=== PATIENT | male | born 1945 | race Caucasian/White ===

== ENCOUNTER → 2019-07-31 14:32 | Outpatient (CLI) | payer OTHER, SELFPAY ==
--- NOTE | 2019-07-31 14:36 | DI.US.S_ITS ---
PROCEDURE: US ABDOMEN LIMITED INDICATIONS: R PELVIC REGION LUMP, BRUISE, R/OHERNIA TECHNIQUE: Real-time focused scanning was performed of the inguinal region, with image documentation. COMPARISON: None. FINDINGS: The right inguinal region was evaluated and the area of subjective lump. Imaging was performed with and without Valsalva. No inguinal hernia is identified. No lymphadenopathy or other suspicious mass is identified. No fluid collection. IMPRESSION: Unremarkable ultrasound in the region of the palpable lump in the right inguinal region. No evidence of hernia. Dictated by: Jasiel Thakkar M.D. on 07/31/2019 at 15:23 Approved by: Jasiel Thakkar M.D. on 07/31/2019 at 15:24
== END ==
PROVIDERS: PCP Internal Medicine; Visit Provider Physician Assistant
DX: S30.1XXA Contusion of abdominal wall, initial encounter (principal)
CPT/HCPCS: 76705

== ENCOUNTER → 2019-07-31 14:37 | Outpatient (CLI) | payer OTHER, SELFPAY ==
[2019-07-31 15:24] LABS: Erythrocyte Sedimentation Rate 7 MM/HR (0-15)
[2019-07-31 17:03] LABS: C-Reactive Protein Quant 0.9 mg/dL (<1.0)
== END ==
PROVIDERS: PCP Internal Medicine; Visit Provider Pain Medicine Pain Medicine
DX: M47.819 Spondylosis without myelopathy or radiculopathy, site unspecified (principal)
CPT/HCPCS: 36415; 85651; 86140

== ENCOUNTER 2019-10-07 13:00 | Outpatient (RCR) | payer OTHER, SELFPAY ==
--- NOTE | 2019-08-22 15:59 | PT-OP ANOTE ---
Pt arrives for PT eval. He and state that he is going to have MBB procedure on 08/27/19 and will follow-up with referring provider on 08/28/19. Given this, PT will hold assessment until after intervention. Pt and to get any clearance orders from referring provider if needed post-procedure. Will use history information collected today for assessment when appropriate.
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
--- NOTE | 2019-09-06 16:10 | PT.OPPOC ---
Current Diagnoses Myalgia, other site (09/06/19) Visit Care Team Role Provider Type Jerome Krishna MD Primary Care Provider Physician Specialty: Internal Medicine Address: [address] [place] [address], [address] Email: [email or web address] Attending Provider Non-Staff Specialty: Anesthesiology Address: [address] [place] [address], [address], [place], [address] Email: Plan Of Care PT-OP-T Assessment and Plan Start: 08/22/19 07:20 Freq: Status: Active Protocol: Document 09/06/19 14:34 MB (Rec: 09/06/19 16:09 MB [id number]) Physical Therapy Assessment Rehab Potential Rehabilitation Potential Good Evaluation Complexity Number of Personal Factors/Comorbidities 1-2 Number of Body Systems Impaired 1-2 Clinical Presentation at Evaluation Evolving Impairments Impairments Pain,Posture,ROM,Sensation, Soft Tissue Mobility,Strength, Vestibular Goals 4 Cleat Thrower Goal (LTG) Pt will report a 50% improvement in neck pain by . 3 Fpc Goal (LTG) Pt will present with improved active cervical ROM flexion to 30 deg, extension to 25 deg and B rotation to 60 deg by . LTG Duration 9 weeks 2 Cleat Thrower Goal (LTG) Pt will perform progressive HEP with I including flexibility, strengthening and postural exercises by 11/15/19 . LTG Duration 9 weeks 1 Cleat Thrower Goal (LTG) Pt will present with an improved NDI score to reflect no more than 10% impairment by 11/15/19. LTG Duration 9 weeks Assessment Summary Assessment Pt is a 73 y/o male presenting with neck and thoracic pain. He reports his low back no longer bothers him after his MBB to lumbar spine last week. Pt presents with decreased cervical ROM, postural and myofascial changes and decreased flexibility. He will benefit from PT for flexibility, manual, postural, alignment and balance exercises. Barriers to PT include reports of mild instability LB after MBB with future injections planned and obesity. Pt is also interested in trying TENS as he liked e- stim in the past. Physical Therapy Plan Frequency and Duration Frequency of Treatment 2x/Week Duration of Treatment 9 weeks Plan of Care Start Date 09/06/19 Plan of Care End Date 11/15/19 Therapeutic Interventions Therapeutic Interventions Balance Training,Canalithic Repositioning,Coordination Training,Home Exercise Program ,Manual Therapy,Neuromuscular Re-education,Patient/Caregiver Education,Self-Care/Home Management,Soft Tissue Mobilization,Taping, Therapeutic Exercises Modalities Cold Pack/Ice Massage,Electric Stimulation,Hot Packs, Ultrasound Next Visit Focus/Plan Next Note Type Treatment Note Next Visit Plan Initiate postural, alignment and flexibility exercises Plan of Care Dates Plan of Care Start Date 09/06/19 Plan of Care End Date 11/15/19
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
== END 2019-10-07 14:00 ==
LOC: PHYS 13:00
PROVIDERS: PCP Internal Medicine; Visit Provider Pain Medicine Pain Medicine
DX: M79.18 Myalgia, other site (principal)
CPT/HCPCS: 97110; 97140; 97162

== ENCOUNTER → 2019-12-31 07:36 | Outpatient (CLI) | payer OTHER, SELFPAY ==
[2019-12-31 08:08] LABS: Add Manual Diff / Slide Review NO; Basophils Absolute Auto 100 /uL (0-100); Basophils Percent Auto 0.9 % (0-2); Eosinophils Absolute Auto 300 /uL (0-450); Hematocrit 45.9 % (41-53); Hemoglobin 15.8 g/dL (13.5-17.5); Lymphocytes Absolute Auto 2300 /uL (1100-4500); Lymphocytes Percent Auto 36.9 % (25-40); Mean Corpuscular HGB Conc 34.4 % (30-36); Mean Corpuscular Hemoglobin 31.1 PG (26-34); Mean Corpuscular Volume 90.5 fL (80-100); Monocytes Absolute Auto 400 /uL (0-900); Monocytes Percent Auto 7.3 % (3-14); Neutrophils Absolute Auto 3100 /uL (1500-7000); Neutrophils Percent Auto 49.9 % (50-75); Platelet Count 268 X10^3/uL (150-400); Red Blood Cell Count 5.07 X10^6/uL (4.5-5.9); Red Cell Distribution Width 13.7 % (11.6-14.8); White Blood Cell Count 6.1 X10^3/uL (4.5-11.0)
[2019-12-31 08:22] LABS: Aspartate Aminotransferase 21 IU/L (17-59); BUN Creatinine Ratio 25.8 (6-22); Blood Urea Nitrogen 24 mg/dL (9-20); Calcium 9.6 mg/dL (8.4-10.2); Carbon Dioxide 26 mmol/L (22-32); Chloride 103 mmol/L (98-107); Cholesterol 213 mg/dL (140-199); Estimated Glomerular Filt Rate > 60.0 mL/min (>60); Glucose 148 mg/dL (80-110); HDL Cholesterol 39 mg/dL (40-60); HEMOLYSIS < 15 (0-50); LDL Cholesterol Calculated 147 mg/dL (<100); Potassium 3.5 mmol/L (3.4-5.1); Sodium 139 mmol/L (137-145); Triglycerides 137 mg/dL (35-150)
== END ==
PROVIDERS: PCP Internal Medicine; Referring Provider Internal Medicine; Visit Provider Internal Medicine
DX: I10 Essential (primary) hypertension (principal); E78.2 Mixed hyperlipidemia; N40.0 Benign prostatic hyperplasia without lower urinary tract symptoms
CPT/HCPCS: 36415; 80048; 80061; 84153; 84450; 85025

== ENCOUNTER → 2020-07-22 08:14 | Outpatient (CLI) | payer OTHER, SELFPAY ==
[2020-07-22 09:18] LABS: BUN Creatinine Ratio 19.8 (6-22); Blood Urea Nitrogen 16 mg/dL (9-20); Calcium 9.2 mg/dL (8.4-10.2); Carbon Dioxide 27 mmol/L (22-32); Chloride 100 mmol/L (98-107); Estimated Glomerular Filt Rate > 60.0 mL/min (>60); Glucose 260 mg/dL (80-110); HEMOLYSIS < 15 (0-50); Potassium 3.4 mmol/L (3.4-5.1); Sodium 136 mmol/L (137-145)
== END ==
PROVIDERS: PCP Internal Medicine; Referring Provider Internal Medicine; Visit Provider Internal Medicine
DX: I10 Essential (primary) hypertension (principal)
CPT/HCPCS: 36415; 80048

== ENCOUNTER → 2020-11-12 15:41 | Outpatient (ROUT) | payer OTHER, SELFPAY ==
[2020-11-12 16:28] LABS: Aspartate Aminotransferase 28 IU/L (17-59); BUN Creatinine Ratio 24.3 (6-22); Blood Urea Nitrogen 18 mg/dL (9-20); Calcium 9.9 mg/dL (8.4-10.2); Carbon Dioxide 29 mmol/L (22-32); Chloride 101 mmol/L (98-107); Cholesterol 185 mg/dL (140-199); Estimated Glomerular Filt Rate > 60.0 mL/min (>60); Glucose 144 mg/dL (80-110); HDL Cholesterol 33 mg/dL (40-60); HEMOLYSIS < 15 (0-50); LDL Cholesterol Calculated 90 mg/dL (<100); Potassium 3.5 mmol/L (3.4-5.1); Sodium 138 mmol/L (137-145); Triglycerides 310 mg/dL (35-150)
[2020-11-12 16:58] LABS: Prostate Specific Antigen 0.857 ng/mL (0.10-4.00)
== END ==
PROVIDERS: PCP Internal Medicine; Visit Provider Internal Medicine
DX: E78.2 Mixed hyperlipidemia (principal); E11.69 Type 2 diabetes mellitus with other specified complication
CPT/HCPCS: 80048; 80061; 84153; 84450

== ENCOUNTER → 2022-11-10 14:40 | Outpatient (CLI) | payer OTHER, SELFPAY ==
--- NOTE | 2022-11-10 14:40 | DI.RAD.S_ITS ---
PROCEDURE: XR LUMBAR SPINE MIN 4V INDICATIONS: BACK PAIN TECHNIQUE: 5 views of the lumbar spine were acquired, including bilateral oblique views. COMPARISON: None. FINDINGS: Bones: 6 nonrib-bearing vertebrae are present. Retrolisthesis of L2 on L3 measuring 0.5 cm. Small multilevel vertebral body osteophytes. Multilevel loss of intervertebral disc space height. Lower lumbar spine facet joint hypertrophy. No vertebral body compression fractures. No suspicious bony lesions. Soft tissues: Overlying bowel gas pattern is normal. No suspicious soft tissue calcifications. Oblique images: No pars defects. IMPRESSION: Moderate degenerative change in the lumbar spine. Dictated by: Khai Clifton M.D. on 11/10/2022 at 16:42 Approved by: Khai Clifton M.D. on 11/10/2022 at 16:50
== END ==
PROVIDERS: PCP Internal Medicine; Referring Provider Physical Medicine & Rehabilitation; Visit Provider Physical Medicine & Rehabilitation
DX: M54.9 Dorsalgia, unspecified (principal); M47.816 Spondylosis without myelopathy or radiculopathy, lumbar region
CPT/HCPCS: 72110

== ENCOUNTER → 2022-11-28 09:13 | Outpatient (CLI) | payer OTHER, SELFPAY ==
--- NOTE | 2022-11-28 09:28 | DI.MRI.S_ITS ---
PROCEDURE: MR LUMBAR SPINE WO CON INDICATIONS: Chronic progressive neurogenic claudication TECHNIQUE: Noncontrast sagittal T1 spin echo and T2 fast echo, sagittal STIR, and T2 fast spin echo through the lumbar spine. In cases with scoliosis, additional coronal T2 fast spin echo may be performed. COMPARISON: None. FINDINGS: Image quality: Excellent. Alignment and Curvature: There is normal bony alignment. Bone Marrow: Marrow is of normal overall signal. No acute vertebral body compression fractures. Spinal Cord: Conus medullaris terminates at the L1 level. Visualized cord demonstrates normal signal and size. Paraspinous Soft Tissues: No paravertebral masses. Discs: [id number] desiccation is present throughout the lumbar spine most severe at L3-4 and L5-S1. L1-L2: Minimal disc bulge without spinal stenosis or foraminal narrowing. L2-L3: Mild disc bulge without spinal stenosis. Mild right and minimal left foraminal narrowing with facet and ligamentum flavum hypertrophy. L3-L4: Mild disc bulge with moderate to severe spinal stenosis. Moderate bilateral foraminal narrowing with facet and ligamentum flavum hypertrophy. L4-L5: Mild disc bulge with [id number] spinal stenosis. Severe left and moderate to severe right foraminal narrowing. It is noted that there is prominent narrowing through the right subarticular recess. L5-S1: Mild disc bulge with superimposed protrusion. Moderate bilateral foraminal narrowing with facet and ligamentum flavum hypertrophy. IMPRESSION: Multilevel disc bulges. Multilevel spinal stenosis most severe at L3-4 secondary to disc bulge with contributing effect of facet/ligamentum flavum arthropathy. Multilevel foraminal narrowing most severe at L4-5 secondary to facet arthropathy. Dictated by: Felicita Ge M.D. on 11/28/2022 at 19:37 Approved by: Felicita Ge M.D. on 11/28/2022 at 19:40
== END ==
PROVIDERS: PCP Internal Medicine; Referring Provider Physical Medicine & Rehabilitation; Visit Provider Physical Medicine & Rehabilitation
DX: M48.062 Spinal stenosis, lumbar region with neurogenic claudication (principal); M51.16 Intervertebral disc disorders with radiculopathy, lumbar region; M51.17 Intervertebral disc disorders with radiculopathy, lumbosacral region; M47.26 Other spondylosis with radiculopathy, lumbar region; M47.27 Other spondylosis with radiculopathy, lumbosacral region
CPT/HCPCS: 72148

== ENCOUNTER 2022-12-20 13:03 | Outpatient (CLI) | payer OTHER, SELFPAY ==
[2022-12-20] VITALS (8 sets, daily range): BP systolic 145–179; BP diastolic 60–80; PULSE 66–73; RESP 14–18; TEMP 36.5; O2SAT 94–100
--- NOTE | 2022-12-20 13:42 | DI.RAD.S_ITS ---
PROCEDURE: PAIN L INTERLAMINAR/CAUDAL INJ INDICATIONS: SPONDYLOSIS COMPARISON: None. FINDINGS: Fluoroscopic spot filming was performed to verify placement of spinal needles at the L4-5 level(s), as labeled on the films. Appropriate location(s) of the needle tip(s) was confirmed by injection of iodinated contrast. IMPRESSION: Fluoroscopic this Approved by: Harsha Payne M.D. on 12/20/2022 at 18:00
[2022-12-20] MEDS: MIDAZOLAM 2 MG/2 ML VIAL IV (13:47)
[2022-12-20] MEDS: BUPIVACAINE 0.25% (PF) VIAL 2 ML INJ (13:50)
[2022-12-20] MEDS: IOPAMIDOL 15 ML VIAL 3 ML INJ (13:50)
[2022-12-20] MEDS: DEXAMETHASONE 10 MG/ML VIAL 20 MG INJ (13:50)
[2022-12-20] MEDS: BETAMETHASONE 30 MG/5 ML MDV 6 MG INJ (13:51)
--- NOTE | 2022-12-20 14:02 | P.PCN_ITS ---
Date/Time/Diagnoses Date of procedure: 12/20/22 Time of procedure: 14:02 Pre-procedure diagnosis: 1. HNP WITH RADICULAR FEATURES, 2. MULTILEVEL CENTRAL STENOSIS, Post-procedure diagnosis: same Procedure Notes Procedure: 1. FLUOROSCOPICALLY GUIDED CONTRAST CONTROLLED INTERLAMINAR EPIDURAL STEROID INJECTION -L4/5 Indications: Naa is referred by Dr. Krishna for treatment of Bilateral Foraminal Stenosis R>L LE symptoms. Physician: Da Elizalde Total Fluoroscopy time (seconds): 5 Total sedation minutes: 10 Complications: none Procedure in detail & Post-procedure care: FINDINGS Multilevel Central Spinal Stenosis with Nerve Root Compression DESCRIPTION OF PROCEDURE Fluoroscopically guided, contrast-controlled L4/5 translaminar epidural steroid injection. Following review of allergy and review of potential side effects and complications, including, but not necessarily limited to, infection, allergic reaction, local tissue breakdown, temporary as well as permanent nerve injury, paralysis, stroke and possible , the patient indicated that the patient understood and agreed to proceed. An informed consent document was signed by the patient, witnessed by a nurse, and placed in the patient's chart. Additionally, other treatment options including modalities, medications, and physical therapy were reviewed with the patient. After review of previous anaesthesic history and IV conscious sedation the patient was deemed safe to proceed with today?s procedure with IV conscious sedation as ASA class II designation. Safety time-out was performed to confirm patient ID, procedure to be performed and site of procedure. IV sedation was accomplished with a combination of 2mg of Versed was administered by the RN after DO order, titrated to patient comfort during the course of the procedure while the patient remained responsive to all verbal commands In the prone position, following sterile prep and drape of the lumbar region, the L4/5 translaminar space was identified fluoroscopically. The skin was anesthetized via a 25-gauge, 1.5inch needle with 1% lidocaine solution. At this point, a 22-gauge short bevel spinal needle was atraumatically introduced and advanced under fluoroscopic guidance into the region of the L4/5 translaminar space. Depth was confirmed on lateral view. Radiological data, including multiple fluoroscopic views of the lumbar spine, reveal a spinal needle at the L4/5 translaminar space. Lateral views then show placement of the needle in the epidural space. Subsequent views show contrast material flowing superiorly and inferiorly in the epidural space. No vascular or intrathecal uptake is observed. At this point, using loss of resistance technique with saline and air, the epidural space was entered. This was confirmed following negative aspiration with injection of approximately 1.5cc of Isovue 200, showing excellent epidural flow without vascular or intrathecal uptake. At this point, 1cc of 1% lidocaine solution combined with 3cc or 20mg of dexamethasone and 6mg betamethasone was injected without incident. The patient tolerated the procedure well without signs or symptoms of complications prior to transfer to the recovery area continued monitoring without incident. The patient was then transferred to the recovery area where they were observed for an appropriate period of time after the injection. The patient reported a VAS score of 6 prior to the procedure and a post- procedure VAS of 0. POST OP INSTRUCTIONS The patient was provided a Pain Log to continue to record their response to the target-specific procedure prior to follow-up visit with their referring physician. Additionally, specific post-injection care instructions and a contact number to our office were provided if concerns arise regarding possible complications associated with the procedure are suspected.
== END 2022-12-20 14:19 | disposition home or self-care (01) ==
LOC: RAD 13:04
PROVIDERS: PCP Internal Medicine; Referring Provider Physical Medicine & Rehabilitation; Visit Provider Physical Medicine & Rehabilitation
DX: M51.16 Intervertebral disc disorders with radiculopathy, lumbar region; M48.061 Spinal stenosis, lumbar region without neurogenic claudication
CPT/HCPCS: 62323; 99152; J0702; J1100; J2250; J3490

== ENCOUNTER 2023-01-03 08:23 | Day surgery (SDC) | payer OTHER, SELFPAY ==
--- NOTE | 2023-01-03 | PATH_ITS ---
[facility] Accession Number: [id number] No. of containers..01 Tissue . 01 Material submitted: . colon - TRNASVERSE COLON BIOPSY X 2 . 01 Diagnosis: Transverse Colon, Biopsy x2: Tubular adenomas. MRV 01/06/2023 1426 Local . 01 Electronically signed: . Teresa Edward MD, Pathologist NPI- [id number] . 01 Gross description: . TRNASVERSE COLON BIOPSY X 2: Received in formalin are multiple fragment(s) of ulloa, soft tissue measuring 1.2 x 0.3 x 0.1 cm in aggregate submitted entirely in 1 cassette(s) /CPE 01/04/2023 0634 Local . 01 Pathologist provided ICD-10: D12.3 . 01 CPT . 980089 Specimen Comment: A courtesy copy of this report has been sent to [phone] Performed at: 01 [facility] [address] [place] [address], [place], [place] [id number] [address] MD Phone: [phone]
[2023-01-03 08:53] VITALS: BP 149/82; PULSE 98; RESP 16; TEMP 36.1; O2SAT 95; BMI 36.5
[2023-01-03] MEDS: LACTATED RINGERS 1,000 ML 200 ML IV (08:57)
--- NOTE | 2023-01-03 09:41 | PM.HP.1 ---
History of Present Illness History of Present Illness Date Patient Seen: 01/03/23 Time Patient Seen: 09:41 Chief complaint: Screening Colonoscopy Narrative: The patient presents for colorectal screening. Most recent colonoscopy 5 years ago significant for benign polyps. Family history is significant for mother who developed colon cancer and ultimately passed in her 60s. On further history denies any recent gastrointestinal symptoms. No nausea, vomiting, abdominal pain, loss of appetite, unexplained weight loss, change in bowel habits, or blood per rectum. Patient History Medical History Allergic rhinitis BPH w urinary obs/LUTS Chicken pox Chronic back pain DM type 2 with diabetic dyslipidemia (~2021) Essential hypertension Facet arthropathy, lumbar History of colonic polyps Knee pain Lumbar radiculopathy Medicare annual wellness visit, initial Mixed hyperlipidemia Obesity (BMI 30.0-34.9) Polyneuropathy, unspecified Primary osteoarthritis involving multiple joints Spinal stenosis, lumbar region with neurogenic claudication Surgical History Anesthesia History of knee surgery (~12/1998) History of knee surgery (~1986) Family & Social History Family History Father Diabetes mellitus History of heart disease Mother Cancer Social History: household members spouse Tobacco & Substance use: Smoking Status Never smoker alcohol intake current alcohol intake frequency holiday/special occasion Substance Use Type does not use Meds Home Medications and Allergies Home Medications Medication Instructions Recorded Confirmed Type loratadine 10 mg tablet (Claritin) 10 mg PO QDAY ##0 09/07/12 11/14/22 History olopatadine 0.2 % eye drops 1 drp OPH #2.5 mL 09/07/12 11/14/22 History (Pataday) acetaminophen 500 mg tablet 500 mg PO Q6H PRN Pain (Scale 09/23/22 01/03/23 History Score 1-3) aspirin 81 mg tablet,delayed 81 mg PO DAILY 09/23/22 01/03/23 History release (Adult Low Dose Aspirin) chlorthalidone 25 mg tablet 25 mg PO DAILY 09/23/22 01/03/23 History cholecalciferol (vitamin D3) 50 50 mcg PO DAILY 09/23/22 01/03/23 History mcg (2,000 unit) capsule coenzyme Q10 100 mg capsule 300 mg PO DAILY 09/23/22 01/03/23 History diazepam 5 mg tablet 5 mg PO .q6hrs PRN Sleep 09/23/22 01/03/23 History multivitamin 1 tab PO DAILY 09/23/22 11/14/22 History potassium chloride 10 mEq 10 meq PO DAILY 09/23/22 11/14/22 History capsule,extended release pravastatin 10 mg tablet 10 mg PO DAILY 09/23/22 11/14/22 History prednisolone acetate 1 % eye 1 drp EYE-BOTH DAILY 09/23/22 11/14/22 History drops,suspension triazolam 0.25 mg tablet 0.25 mg PO ONCE PRN Anxiety 09/23/22 01/03/23 History amlodipine 10 mg tablet 10 mg PO DAILY #90 tabs 10/31/22 01/03/23 Rx acetaminophen 500 mg capsule 500 mg PO BID PRN 11/14/22 11/14/22 History diphenhydramine-acetaminophen 25 ea PO BEDTIME 11/14/22 11/14/22 History mg-500 mg-500 mg day/nite tablets diclofenac sodium 1 % topical gel 2 g topical BID #1,000 grams 12/12/22 01/03/23 Rx fluticasone propionate 50 2 spray intranasal DAILY #16 grams 12/13/22 Rx mcg/actuation nasal spray,suspension losartan 100 mg tablet 100 mg PO DAILY #90 tabs 12/13/22 Rx Allergies Allergy/AdvReac Type Severity Reaction Status Date / Time simvastatin [SIMVASTATIN] Allergy Severe MUSCLE Verified 01/03/23 08:42 CRAMPS metformin AdvReac Intermediate Diarrhea Verified 01/03/23 08:42 duloxetine AdvReac Irritable Verified 01/03/23 08:42 Exam Vital Signs (past 8 hours): - 01/03/23 08:53 Temperature 97.0 F L Pulse Rate 98 H Respiratory Rate 16 Blood Pressure 149/82 H Pulse Oximetry 95 Oxygen Delivery Method Room Air Oxygen Delivery Method Room Air Narrative Exam Narrative: GENERAL: A well nourished, well developed gentleman appearing stated age, resting comfortably, in no acute distress. ABDOMEN: Soft, non-tender, non-distended EXTREMITIES: Normal tone and without edema. NEUROLOGIC: Moving all extremities spontaneously. No gross motor deficits. Assessment & Plan Assessment & Plan narrative: The patient requires colorectal screening and colonoscopy is recommended. Technical details were discussed. Risks, benefits, alternatives explained. Risks including but not limited to myocardial infarction, aspiration, bleeding, pain, missed lesion, incomplete examination, need for further radiographic studies, colonic perforation, and need for major abdominal surgery were discussed. All questions were answered to their satisfaction, and they are in agreement with this plan. Time Spent With Patient Critical Care time: I spent a total of [] minutes of critical care time on this patient's care today; this time is exclusive of procedural time.
--- NOTE | 2023-01-03 09:48 | PM.OP.COLON ---
Operative Date/Time/Diagnoses Date of procedure: 01/03/23 Time of procedure: 09:49 Pre-op diagnosis: Family history of colon cancer Personal history of colonic Post-op diagnosis: other (Colonic polyps x2) Procedure & Clinicians Study performed: Colonoscopy Same procedure as scheduled: Yes Indications: Personal history of colonic polyps, first-degree family member with colon cancer Surgeon: Mhosen Cheney Procedure Notes Procedure in detail: The history and physical was performed/updated and the patient is ASA class is 2. The procedure was discussed in detail with the patient. Potential risks complications including infection, bleeding, missed diagnosis, perforation, need for surgery, and were explained. Their questions were answered and informed consent was obtained. Patient was brought to the procedure room and placed standard monitoring equipment. The patient's vital signs were monitored continuously throughout the entire procedure. Prior to starting time-out was performed. The patient was placed in the left lateral recumbent position. Procedural sedation was administered by anesthesia. Examination began with a thorough inspection of the perianal area there was no evidence of fissures, fistulae, external hemorrhoids or cutaneous malignancy. The colonoscopy scope was then placed into the anal canal and was advanced to the cecum, which was identified by the ileocecal valve, the appendiceal orifice and the confluence of the taenia. The scope was then slowly withdrawn examining colon thoroughly in all directions, irrigating it of any residual stool. Within the transverse colon there were 2 polyps both less than 1 cm which were removed with cold snare. The descending and sigmoid colon were notable for wide mouth diverticulum The patient tolerated the procedure well. They will be discharged once criteria are met. The prep was of good/excellent quality. The withdrawl time was 7 minutes. Specimen(s): other (Transverse colon polyps x2) Impression: Colonic polyps x2 Post-procedure Recommendations: High fiber diet Plan for aftercare: Follow-up is dependent on pathology findings Disposition: same day surgery
[2023-01-03 10:17] VITALS: BP 108/72; PULSE 76; RESP 12; TEMP 36.8; O2SAT 93
[2023-01-03 10:22] VITALS: BP 111/70; PULSE 91; RESP 24; O2SAT 97
[2023-01-03 10:28] VITALS: BP 105/70; PULSE 73; RESP 14; O2SAT 97
[2023-01-03 10:40] VITALS: BP 117/71; PULSE 671; RESP 6; TEMP 36.4; O2SAT 98
== END 2023-01-03 10:47 | disposition home or self-care (01) ==
PROVIDERS: PCP Internal Medicine; Referring Provider Surgery; Visit Provider Surgery
PROC: 0DJD8ZZ Inspection of Lower Intestinal Tract, Via Natural or Artificial Opening Endoscopic (ICD-10-PCS; CPT 45378; principal; 2023-01-03 09:30)
DX: Z12.11 Encounter for screening for malignant neoplasm of colon (principal); Z80.0 Family history of malignant neoplasm of digestive organs; K57.30 Diverticulosis of large intestine without perforation or abscess without bleeding; D12.3 Benign neoplasm of transverse colon
CPT/HCPCS: 45385; J2704

== ENCOUNTER → 2023-02-01 07:26 | Outpatient (CLI) | payer OTHER, SELFPAY ==
[2023-02-01 09:18] LABS: Hematocrit 41.5 % (41-53); Hemoglobin 14.7 g/dL (13.5-17.5); Mean Corpuscular HGB Conc 35.5 % (30-36); Mean Corpuscular Hemoglobin 31.5 PG (26-34); Mean Corpuscular Volume 88.7 fL (80-100); Platelet Count 238 X10^3/uL (150-400); Red Blood Cell Count 4.68 X10^6/uL (4.5-5.9); Red Cell Distribution Width 13.5 % (11.6-14.8); White Blood Cell Count 6.8 X10^3/uL (4.5-11.0)
[2023-02-01 09:54] LABS: Alanine Aminotransferase 39 IU/L (<50); Albumin 4.5 g/dL (3.5-5.0); Albumin Globulin Ratio 1.6 (1.0-2.8); Alkaline Phosphatase 54 U/L (38-126); Aspartate Aminotransferase 30 IU/L (17-59); BUN Creatinine Ratio 19.7 (6-22); Bilirubin Total 0.5 mg/dL (0.2-1.3); Blood Urea Nitrogen 14 mg/dL (9-20); Calcium 9.4 mg/dL (8.4-10.2); Carbon Dioxide 28 mmol/L (22-32); Chloride 101 mmol/L (98-107); Cholesterol 188 mg/dL (140-199); Estimated Glomerular Filt Rate > 60 mL/min (>60); Globulin 2.8 g/dL (1.7-4.1); Glucose 166 mg/dL (80-110); HDL Cholesterol 37 mg/dL (40-60); HEMOLYSIS < 15 (0-50); LDL Cholesterol Calculated 111 mg/dL (<100); Potassium 3.1 mmol/L (3.4-5.1); Sodium 137 mmol/L (137-145); Total Protein 7.3 g/dL (6.3-8.2); Triglycerides 199 mg/dL (35-150)
[2023-02-01 10:25] LABS: Prostate Specific Antigen 1.35 ng/mL (0.10-4.00); TSH w/ Reflex to FT4 1.88 uIU/mL (0.47-4.68)
[2023-02-02 06:10] LABS: Labcorp Hemoglobin (Hb) A1c 7.3 % (4.8-5.6)
== END ==
PROVIDERS: PCP Internal Medicine; Referring Provider Internal Medicine; Visit Provider Internal Medicine
DX: E78.2 Mixed hyperlipidemia (principal); N40.1 Benign prostatic hyperplasia with lower urinary tract symptoms; R73.01 Impaired fasting glucose; I10 Essential (primary) hypertension; N13.8 Other obstructive and reflux uropathy
CPT/HCPCS: 36415; 80053; 80061; 83036; 84153; 84443; 85027

== ENCOUNTER 2023-03-21 10:40 | Outpatient (CLI) | payer OTHER, SELFPAY ==
[2023-03-21] VITALS (7 sets, daily range): BP systolic 149–180; BP diastolic 74–87; PULSE 66–79; RESP 13–18; TEMP 36.5; O2SAT 96–98
--- NOTE | 2023-03-21 10:41 | DI.RAD.S_ITS ---
PROCEDURE: PAIN L/S FACET INJ/BLK 1ST JOSE M COMPARISON: None. INDICATIONS: SPONDYLOSIS FINDINGS: Access needle tips localized to the bilateral L3, L4 and L5 elkin-pedicle locations. Olaf keita of small amount of contrast are all demonstrates the access needles are extra thecal. IMPRESSION: Access needle and expected position for bilateral L3, L4 and L5 medial nerve branch block. Dictated by: Maddy Kiran MD, PhD on 03/21/2023 at 13:48 Approved by: Maddy Kiran MD, PhD on 03/21/2023 at 13:49
[2023-03-21] MEDS: MIDAZOLAM 2 MG/2 ML VIAL IV (11:37)
[2023-03-21] MEDS: IOPAMIDOL 15 ML VIAL 3 ML INJ (11:42)
[2023-03-21] MEDS: BUPIVACAINE 0.5% (PF) 10 ML VIAL 5 ML INJ (11:43)
[2023-03-21] MEDS: LIDOCAINE 1% (PF) 5 ML INJ ×2 (11:46→11:47)
--- NOTE | 2023-03-21 12:02 | PM.PROC.IR.1 ---
Date/Time/Diagnoses Date of procedure: 03/21/23 Time of procedure: 12:02 Pre-procedure diagnosis: FACET ARTHROPATHY Post-procedure diagnosis: same Procedure Notes Procedure: 1. BILATERAL L3, L4 AND L5 DIAGNOSTIC MB BLOCKS Indications: Naa is referred by Dr. Krishna for treatment of Bilateral Axial LBP. Physician: Da Elizalde Total Fluoroscopy time (seconds): 12 Total sedation minutes: 17 Complications: none Procedure in detail & Post-procedure care: DESCRIPTION OF PROCEDURE Fluoroscopically guided, contrast-controlled bilateral L3, L4 AND L5 medial branch blocks with 0.5cc of 0.5% Marcaine. Following review of allergy and review of potential side effects and complications, including, but not necessarily limited to, infection, allergic reaction, local tissue breakdown, nerve injury, paralysis, stroke and possible , the patient indicated that the patient understood and agreed to proceed. An informed consent document was signed by the patient, witnessed by a nurse, and placed in the patient's chart. After review of previous anaesthesic history and IV conscious sedation the patient was deemed safe to proceed with today's procedure with IV conscious sedation as ASA class II designation. Safety time-out was performed to confirm patient ID, procedure to be performed and site of procedure. IV sedation was accomplished with a combination of 2mg of Versed was administered by the RN after DO order, titrated to patient comfort during the course of the procedure while the patient remained responsive to all verbal commands In the prone position, following sterile prep and drape of the lumbar region, the right L3, L4 AND L5 anatomical location of the medial branch of the dorsal ramus was identified fluoroscopically. Subsequently an anesthetic skin wheal using 1% lidocaine solution was initiated at each of the anatomical spots. Subsequently then a 22-gauge 3.5-inch spinal needle was atraumatically introduced and advanced under fluoroscopic guidance at each of the corresponding sites at the right L3, L4 and L5 MB. After negative aspiration, 0.2cc of Isovue 200 was injected, confirming placement without vascular or intrathecal uptake. Subsequently then 0.5cc of 0.5% Marcaine solution was injected at each of the corresponding sites at the right L3, L4 and L5 medial branch locations. The identical procedure was replicated on the left. The patient tolerated the procedure well without signs or symptoms of complications. The patient tolerated the procedure well without signs or symptoms of complications prior to transfer to the recovery area continued monitoring without incident. Post-procedure, the patient was monitored initiating provocative activities to measure the amount of relief from block of the facetogenic pain. The patient reported a VAS of 7 prior to the procedure and a post-procedure VAS of 1. It has been a pleasure to assist in the diagnostic and therapeutic care of your patient. POST OP INSTRUCTIONS The patient was provided with a Pain Log to complete over the next several hours and subsequent days prior to the patient's follow up with the ordering physician. If the patient has career services director relief to the solution applied, then they may be a candidate for medial branch rhizotomy. The patient is aware, was provided, once again, with a Pain Log and will follow up with the referring physician for review and clinical correlation
== END 2023-03-21 12:16 | disposition home or self-care (01) ==
LOC: RAD 10:40
PROVIDERS: PCP Internal Medicine; Referring Provider Physical Medicine & Rehabilitation; Visit Provider Physical Medicine & Rehabilitation
DX: M47.816 Spondylosis without myelopathy or radiculopathy, lumbar region (principal)
CPT/HCPCS: 64493; 64494; 99152; J2250

== ENCOUNTER → 2023-05-05 07:35 | Outpatient (CLI) | payer OTHER, SELFPAY ==
[2023-05-05 09:42] LABS: Hematocrit 41.5 % (41-53); Hemoglobin 14.9 g/dL (13.5-17.5); Mean Corpuscular HGB Conc 35.8 % (30-36); Mean Corpuscular Hemoglobin 31.2 PG (26-34); Mean Corpuscular Volume 87.2 fL (80-100); Platelet Count 269 X10^3/uL (150-400); Red Blood Cell Count 4.76 X10^6/uL (4.5-5.9); Red Cell Distribution Width 13.7 % (11.6-14.8)
[2023-05-05 09:48] LABS: BUN Creatinine Ratio 19.2 (6-22); Blood Urea Nitrogen 15 mg/dL (9-20); Calcium 9.5 mg/dL (8.4-10.2); Carbon Dioxide 28 mmol/L (22-32); Chloride 101 mmol/L (98-107); Cholesterol 175 mg/dL (140-199); Estimated Glomerular Filt Rate > 60 mL/min (>60); Glucose 167 mg/dL (80-110); HDL Cholesterol 37 mg/dL (40-60); HEMOLYSIS < 15 (0-50); LDL Cholesterol Calculated 104 mg/dL (<100); Potassium 3.5 mmol/L (3.4-5.1); Sodium 138 mmol/L (137-145); Triglycerides 170 mg/dL (35-150)
[2023-05-05 16:52] LABS: Microalbumin Urine Random 0.6 mg/dL (0-1.6)
[2023-05-05 17:14] LABS: Creatinine Urine Random 89.6 mg/dL; Microalbumi Creatinin Ratio Ur 6.6 ug/mg CR (<30)
[2023-05-06 08:47] LABS: x Labcorp Estim. Avg Glu (eAG) 174 mg/dL (.); x Labcorp Hemoglobin A1c 7.7 % (4.8-5.6)
== END ==
PROVIDERS: PCP Internal Medicine; Referring Provider Internal Medicine; Visit Provider Internal Medicine
DX: E11.69 Type 2 diabetes mellitus with other specified complication (principal); E78.5 Hyperlipidemia, unspecified; I10 Essential (primary) hypertension; E78.2 Mixed hyperlipidemia
CPT/HCPCS: 36415; 80048; 80061; 82043; 82570; 83036; 85027

== ENCOUNTER 2023-05-23 18:28 | Emergency (ER) | payer OTHER, SELFPAY ==
[2023-05-23 18:31] VITALS: BP 162/72; PULSE 79; RESP 15; TEMP 36.9; O2SAT 95; BMI 36.6
--- NOTE | 2023-05-23 18:36 | DI.US.S_ITS ---
PROCEDURE: US PERIPH VENOUS LOW EXTREM RT INDICATIONS: rule out DVT,knee surgery yesterday. TECHNIQUE: Real-time imaging, as well as color and pulse Doppler interrogation, were performed of the lower extremity deep veins from the inguinal ligament to the popliteal fossa, with documentation of the visualized calf veins. COMPARISON: [facility], CR, XR KNEE 1 OR 2 VIEWS RIGHT, 05/22/2023, 10:16. FINDINGS: The common femoral, femoral, popliteal, and the visualized calf veins are normally compressible, and free of intraluminal thrombus. Color and pulse Doppler demonstrate normal phasic intraluminal flow. There is normal augmentation response to distal compression maneuver. IMPRESSION: No findings of lower extremity deep venous thrombosis. Dictated by: Nicolas Munoz M.D. on 05/23/2023 at 18:05 Approved by: Nicolas Munoz M.D. on 05/23/2023 at 18:05
--- NOTE | 2023-05-23 22:26 | ED_ITS ---
HPI - Extremity Problem General Chief complaint: Extremity Problem,Nontraumatic Stated complaint: Poss blood clot post knee replacement Time Seen by Provider: 05/23/23 22:11 Source: patient Mode of arrival: Ambulatory History of Present Illness HPI Narrative: Patient 77-year-old male history of hypertension presenting today with right leg pain. He is postop day 1. He had a total knee arthroplasty on the right at [facility] 2 days ago he was doing well until today when he had severe pain in his calf shooting up into his hip and thigh. He had bandage as an Radhames wrap. He reports that the Radhames wrap has now been removed pain is much better. No fever or chills. He is taking oxycodone he took an extra oxycodone earlier today pain is overall better. He has follow-up with ortho in the next 1-2 weeks. He denies any chest pain palpitations or shortness of breath. He is taking postoperatively aspirin. Related Data Home Medications Medication Instructions Recorded Confirmed loratadine 10 mg tablet (Claritin) 10 mg PO QDAY ##0 09/07/12 05/15/23 olopatadine 0.2 % eye drops 1 drp OPHTH #2.5 mL 09/07/12 05/15/23 (Pataday) aspirin 81 mg tablet,delayed 81 mg PO DAILY 09/23/22 05/15/23 release (Adult Low Dose Aspirin) cholecalciferol (vitamin D3) 50 50 mcg PO DAILY 09/23/22 05/15/23 mcg (2,000 unit) capsule coenzyme Q10 100 mg capsule 300 mg PO DAILY 09/23/22 05/15/23 diazepam 5 mg tablet 5 mg PO .q6hrs PRN Sleep 09/23/22 05/15/23 multivitamin 1 tab PO DAILY 09/23/22 05/15/23 pravastatin 10 mg tablet 10 mg PO DAILY 09/23/22 05/15/23 triazolam 0.25 mg tablet 0.25 mg PO ONCE PRN Anxiety 09/23/22 05/15/23 acetaminophen 500 mg capsule 500 mg PO BID PRN 11/14/22 05/15/23 diphenhydramine-acetaminophen 25 ea PO BEDTIME 11/14/22 05/15/23 mg-500 mg-500 mg day/nite tablets cyclosporine 0.05 % eye drops in a 1 drp EYE-BOTH ONCE 03/01/23 05/15/23 dropperette brimonidine 0.2 % eye drops 1 drp EYE-BOTH DAILY glaucoma 05/15/23 05/15/23 polyethylene glycol 3350 17 17 g PO DAILY 05/15/23 05/15/23 gram/dose oral powder Previous Rx's Medication Instructions Recorded amlodipine 10 mg tablet 10 mg PO DAILY #90 tabs 10/31/22 diclofenac sodium 1 % topical gel 2 g topical BID #1,000 grams 12/12/22 fluticasone propionate 50 2 spray intranasal DAILY #16 grams 12/13/22 mcg/actuation nasal spray,suspension losartan 100 mg tablet 100 mg PO DAILY #90 tabs 03/06/23 potassium chloride 10 mEq 10 meq PO DAILY #90 caps 03/29/23 capsule,extended release chlorthalidone 25 mg tablet 25 mg PO DAILY #90 tabs 04/24/23 Allergies Allergy/AdvReac Type Severity Reaction Status Date / Time simvastatin [SIMVASTATIN] Allergy Severe MUSCLE Verified 05/23/23 18:31 CRAMPS metformin AdvReac Intermediate Diarrhea Verified 05/23/23 18:31 duloxetine AdvReac Irritable Verified 05/23/23 18:31 Review of Systems Review of Systems ROS Unobtainable: All systems reviewed & are unremarkable except as noted in HPI and below Patient History Medical History Allergic rhinitis BPH w urinary obs/LUTS Chicken pox Chronic back pain DM type 2 with diabetic dyslipidemia (~2021) Essential hypertension Facet arthropathy, lumbar History of colonic polyps Knee pain Lumbar radiculopathy Mixed hyperlipidemia Obesity (BMI 30.0-34.9) Polyneuropathy, unspecified 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, lumbar region with neurogenic claudication Surgical History Anesthesia History of knee surgery (~12/1998) History of knee surgery (~1986) Family History Father Diabetes mellitus History of heart disease Mother Cancer Social History household members: spouse Smoking Status: Never smoker alcohol intake: current Smoking Status: Never smoker alcohol intake frequency: holidays/special occasions only Substance Use Type: does not use Exam Initial Vital Signs Initial Vital Signs: Vital Signs Temperature 98.4 F 05/23/23 18:31 Pulse Rate 79 05/23/23 18:31 Respiratory Rate 15 05/23/23 18:31 Blood Pressure 162/72 H 05/23/23 18:31 Pulse Oximetry 95 05/23/23 18:31 Oxygen Delivery Method Room Air 05/23/23 18:31 GENERAL: Well-appearing, well-nourished and in no acute distress. CARDIOVASCULAR: peripheral pulses in tact, cap refill <2 sec RESPIRATORY: No respiratory distress, speaks in full sentences without difficulty EXTREMITIES: Normal range of motion, no clubbing or edema. Neurovascularly intact Right lower extremity postoperative incision Steri-Strips in place no significant calf pain there is postoperative swelling no erythema NEUROLOGICAL: Cranial nerves II through XII grossly intact. Normal gait and speech. SKIN: Warm, dry, no petechiae, no rashes or lesions. Course Orders Ordered: ED Orders 05/23/23 18:36 US periph venous low extrem rt Stat Vital Signs Vital signs: Vital Signs - 8 hr 05/23/23 22:41 Pulse Rate 75 Respiratory Rate 18 Blood Pressure 131/63 Pulse Oximetry 94 Oxygen Delivery Method Room Air MDM - Extremity (Nontraumatic) Imaging Data US - DVT: Radiologist's Impression: PROCEDURE:? US PERIPH VENOUS LOW EXTREM RT ? INDICATIONS:? rule out DVT,knee surgery yesterday. ? TECHNIQUE:? Real-time imaging, as well as color and pulse Doppler interrogation, were performed of the lower extremity deep veins from the inguinal ligament to the popliteal fossa, with documentation of the visualized calf veins.? ? COMPARISON:? [facility], CR, XR KNEE 1 OR 2 VIEWS RIGHT, 05/22/2023, 10:16. ? FINDINGS:? The common femoral, femoral, popliteal, and the visualized calf veins are normally compressible, and free of intraluminal thrombus.? Color and pulse Doppler demonstrate normal phasic intraluminal flow.? There is normal augmentation response to distal compression maneuver.? ? ? IMPRESSION:? No findings of lower extremity deep venous thrombosis. ? ? Dictated by: Nicolas Munoz M.D. on 05/23/2023 at 18:05 ? ? MDM Narrative Medical decision making narrative: Patient well-appearing 77-year-old postop day 2.. Concern with increasing pain and possible blood clot. DVT study is negative. Likely postoperative pain there is significant swelling no evidence of any sort of compartment syndrome or infection. He is taking aspirin pain is well controlled now. At this time follow-up with orthopedics Discharge Plan Departure Patient Disposition: Home Clinical Impression: Post-operative pain Instructions: DI for Postoperative Pain Activity Restrictions/Additional Instructions: *You have been diagnosed with postoperative pain *What to do: At this time no evidence of blood clot. Please wear compression sock elevate and ice. Follow up postoperative instructions *Continue to take medications as directed *Follow up with your primary care provider in 2-3 days or call [phone] Follow-up with orthopedics as scheduled *Return to ER if you should have increasing pain swelling redness fever greater than 100.4 or any new, worsening or concerning symptoms Prescriptions: No Action loratadine [Claritin] 10 MG tablet 10 mg PO QDAY Qty: 0 olopatadine [Pataday] 2.5 ML drops 1 drp OPHTH Qty: 2.5 amlodipine 10 mg tablet 10 mg PO DAILY Qty: 90 3RF diclofenac sodium 1 % gel 2 g topical BID Qty: 1000 2RF Rx Instructions: apply to single elbow, wrist or hand; for hand includes palm/fingers/back of hand use 2-4gm on both my knees and both hands, twice a day. (4 joints x 2-4 g x 2 times/day = 112 g per week) fluticasone propionate 50 mcg/actuation spray,suspension 2 spray intranasal DAILY Qty: 16 11RF Rx Instructions: administer into each nostril losartan 100 mg tablet 100 mg PO DAILY Qty: 90 3RF potassium chloride 10 mEq capsule, extended release 10 meq PO DAILY Qty: 90 3RF chlorthalidone 25 mg tablet 25 mg PO DAILY Qty: 90 3RF triazolam 0.25 mg tablet 0.25 mg PO ONCE PRN (Reason: Anxiety) Patient Comments: TAKE ONE TABLET BY MOUTH ONE HOUR PRIOR TO DENTAL APPOINTMENT pravastatin 10 mg tablet 10 mg PO DAILY diazepam 5 mg tablet 5 mg PO .q6hrs PRN (Reason: Sleep) coenzyme Q10 100 mg capsule 300 mg PO DAILY aspirin [Adult Low Dose Aspirin] 81 mg tablet,delayed release (DR/EC) 81 mg PO DAILY cholecalciferol (vitamin D3) 50 mcg (2,000 unit) capsule 50 mcg PO DAILY multivitamin Tablet 1 tab PO DAILY polyethylene glycol 3350 17 gram/dose powder 17 g PO DAILY brimonidine 0.2 % drops 1 drp EYE-BOTH DAILY acetaminophen 500 mg capsule 500 mg PO BID PRN diphenhydramine-acetaminophen 25-500-500 mg tablets, sequential PO BEDTIME cyclosporine 0.05 % dropperette 1 drp EYE-BOTH ONCE Referrals: Jerome Krishna MD [Primary Care Provider] - Daron Chavira MD [Non-Staff] - Stand Alone Forms: Patient Portal/API
[2023-05-23 22:41] VITALS: BP 131/63; PULSE 75; RESP 18; O2SAT 94
== END 2023-05-23 22:45 | disposition home or self-care (01) ==
PROVIDERS: Emergency Provider Emergency Medicine; PCP Internal Medicine
DX: G89.18 Other acute postprocedural pain (principal)
CPT/HCPCS: 93971; 99281; 99282

== ENCOUNTER → 2023-09-27 08:04 | Outpatient (CLI) | payer OTHER, SELFPAY ==
[2023-09-27 09:04] LABS: Hemoglobin A1C% w Est Avg Glu 10.6 % (4.0-6.0)
[2023-09-27 09:18] LABS: Aspartate Aminotransferase 29 IU/L (17-59); BUN Creatinine Ratio 21.2 (6-22); Blood Urea Nitrogen 18 mg/dL (9-20); Carbon Dioxide 29 mmol/L (22-32); Chloride 97 mmol/L (98-107); Cholesterol 185 mg/dL (140-199); Estimated Glomerular Filt Rate > 60 mL/min (>60); Glucose 341 mg/dL (80-110); HDL Cholesterol 36 mg/dL (40-60); HEMOLYSIS < 15 (0-50); LDL Cholesterol Calculated 107 mg/dL (<100); Potassium 3.5 mmol/L (3.4-5.1); Sodium 135 mmol/L (137-145); Triglycerides 210 mg/dL (35-150)
== END ==
PROVIDERS: PCP Internal Medicine; Referring Provider Internal Medicine; Visit Provider Internal Medicine
DX: E11.69 Type 2 diabetes mellitus with other specified complication (principal); E78.5 Hyperlipidemia, unspecified; I10 Essential (primary) hypertension; E78.2 Mixed hyperlipidemia
CPT/HCPCS: 36415; 80048; 80061; 83036; 84450

== ENCOUNTER 2023-10-31 10:11 | Outpatient (CLI) | payer OTHER, SELFPAY ==
[2023-10-31] VITALS (9 sets, daily range): BP systolic 141–181; BP diastolic 63–96; PULSE 75–87; RESP 11–20; TEMP 36.1; O2SAT 95–98
--- NOTE | 2023-10-31 10:45 | DI.RAD.S_ITS ---
PROCEDURE: PAIN L/S TRANSFORAM INJECT JOSE M COMPARISON: None. INDICATIONS: facet arthopathy FINDINGS: Intraoperative fluoroscopy for bilateral L3, L4, and L5 transforaminal medial branch blocks. Images demonstrate needles, contrast, and appropriate contrast washout at all levels as described. IMPRESSION: Intraoperative fluoroscopy for medial branch blocks at levels as above. Dictated by: Marisa Stoddard M.D. on 10/31/2023 at 23:42 Approved by: Marisa Stoddard M.D. on 10/31/2023 at 23:43
[2023-10-31] MEDS: MIDAZOLAM 2 MG/2 ML VIAL IV (11:33)
[2023-10-31] MEDS: iopamidoL 15 ML VIAL 3 ML INJ (11:36)
[2023-10-31] MEDS: LIDOCAINE 1% 20 ML 5 ML INJ (11:36)
[2023-10-31] MEDS: LIDOCAINE 2% INJ SDV 5ML 10 ML INJ (11:37)
--- NOTE | 2023-10-31 11:50 | P.PCN_ITS ---
Date/Time/Diagnoses Date of procedure: 10/31/23 Time of procedure: 11:50 Pre-procedure diagnosis: 1. FACET ARTHROPATHY Post-procedure diagnosis: same Procedure Notes Procedure: 1. BILATERAL L3, L4 AND L5 DIAGNOSTIC MB BLOCKS Indications: Da is referred by Dr. Krishna for treatment of Bilateral Axial LBP. Physician: Da Elizalde Total Fluoroscopy time (seconds): 11 Total sedation minutes: 13 Complications: none Procedure in detail & Post-procedure care: DESCRIPTION OF PROCEDURE Fluoroscopically guided, contrast-controlled bilateral L3, L4 AND L5 medial branch blocks with 0.5cc of 2% Lidocaine. Following review of allergy and review of potential side effects and complications, including, but not necessarily limited to, infection, allergic reaction, local tissue breakdown, nerve injury, paralysis, stroke and possible , the patient indicated that the patient understood and agreed to proceed. An informed consent document was signed by the patient, witnessed by a nurse, and placed in the patient's chart. After review of previous anaesthesic history and IV conscious sedation the patient was deemed safe to proceed with today's procedure with IV conscious sedation as ASA class II designation. Safety time-out was performed to confirm patient ID, procedure to be performed and site of procedure. IV sedation was accomplished with a combination of 2mg of Versed was administered by the RN after DO order, titrated to patient comfort during the course of the procedure while the patient remained responsive to all verbal commands In the prone position, following sterile prep and drape of the lumbar region, the right L3, L4 AND L5 anatomical location of the medial branch of the dorsal ramus was identified fluoroscopically. Subsequently an anesthetic skin wheal using 1% lidocaine solution was initiated at each of the anatomical spots. Subsequently then a 22-gauge 3.5-inch spinal needle was atraumatically introduced and advanced under fluoroscopic guidance at each of the corresponding sites at the right L3, L4 and L5 MB. After negative aspiration, 0.2cc of Isovue 200 was injected, confirming placement without vascular or intrathecal uptake. Subsequently then 0.5cc of 2% Lidocaine solution was injected at each of the corresponding sites at the right L3, L4 and L5 medial branch locations. The identical procedure was replicated on the left. The patient tolerated the proc edure well without signs or symptoms of complications. The patient tolerated the procedure well without signs or symptoms of complications prior to transfer to the recovery area continued monitoring without incident. Post-procedure, the patient was monitored initiating provocative activities to measure the amount of relief from block of the facetogenic pain. The patient reported a VAS of 7 prior to the procedure and a post-procedure VAS of 1. It has been a pleasure to assist in the diagnostic and therapeutic care of your patient. POST OP INSTRUCTIONS The patient was provided with a Pain Log to complete over the next several hours and subsequent days prior to the patient's follow up with the ordering physician. 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 The patient is aware, was provided, once again, with a Pain Log and will follow up with the referring physician for review and clinical correlation
== END 2023-10-31 12:07 | disposition home or self-care (01) ==
LOC: RAD 10:11
PROVIDERS: PCP Internal Medicine; Referring Provider Physical Medicine & Rehabilitation; Visit Provider Physical Medicine & Rehabilitation
DX: M47.816 Spondylosis without myelopathy or radiculopathy, lumbar region (principal)
CPT/HCPCS: 64483; 64493; 64494; 64495; 99152; J2250

== ENCOUNTER → 2024-01-31 09:49 | Outpatient (CLI) | payer OTHER, SELFPAY ==
[2024-01-31 10:45] LABS: Hemoglobin A1C% w Est Avg Glu 7.9 % (4.0-6.0)
[2024-01-31 10:59] LABS: BUN Creatinine Ratio 19.5 (6-22); Blood Urea Nitrogen 17 mg/dL (9-20); Calcium 10.1 mg/dL (8.4-10.2); Carbon Dioxide 30 mmol/L (22-32); Chloride 103 mmol/L (98-107); Estimated Glomerular Filt Rate > 60 mL/min (>60); Glucose 167 mg/dL (80-110); HEMOLYSIS < 15 (0-50); Potassium 3.2 mmol/L (3.4-5.1); Sodium 140 mmol/L (137-145)
== END ==
PROVIDERS: PCP Internal Medicine; Referring Provider Internal Medicine; Visit Provider Internal Medicine
DX: E11.69 Type 2 diabetes mellitus with other specified complication (principal); E78.5 Hyperlipidemia, unspecified
CPT/HCPCS: 36415; 80048; 83036

== ENCOUNTER 2024-03-26 14:55 | Day surgery (SDC) | payer OTHER, SELFPAY ==
[2024-03-21 10:20] VITALS: BMI 35.4
--- NOTE | 2024-03-26 | PATH_ITS ---
[facility] Accession Number: [id number] No. of containers..01 Tissue . 01 Material submitted: . CHEST WALL - LEFT CHEST WALL CYST . 01 Diagnosis: LEFT CHEST WALL, EXCISION: Epidermal inclusion cyst, ruptured and inflamed. MRV 04/01/2024 1224 Local . 01 Electronically signed: . Hali Powell MD, Dermatopathologist NPI- [id number] . 01 Gross description: . Received in formalin with two patient identifiers and left chest wall cyst, is a ulloa ellipse of skin 3.8 x 1.4 x 2.0 cm. The ellipse is unoriented. Inked blue and serially sectioned into 10 slices. The cut surface reveals ulloa to yellow tissue with no cyst identified. Submitted entirely as follows: A1: Tips (a fatty fragment broke off of tip during sectioning). A2-A5: Remaining sequential slices. ([id number]) /KELLY 03/27/2024 0929 Local . 01 Pathologist provided ICD-10: L72.0 . 01 CPT . 230073 Specimen Comment: A courtesy copy of this report has been sent to [phone] Performed at: [address] [facility] [address], [place], [place] [id number] MD [address] MD Phone: [phone]
[2024-03-26 15:38] VITALS: BMI 34.9
[2024-03-26 15:46] VITALS: BP 121/68; PULSE 66; RESP 16; TEMP 36.7; O2SAT 94
[2024-03-26] MEDS: LACTATED RINGERS 1,000 ML 42 ML IV (16:24)
[2024-03-26] MEDS: ACETAMINOPHEN 325 MG TABLET 975 MG PO (16:26)
--- NOTE | 2024-03-26 16:38 | PM.HP.1 ---
History of Present Illness History of Present Illness Date Patient Seen: 03/26/24 Time Patient Seen: 16:38 Chief complaint: Excisional bx Left chest wall cyst Narrative: Dragan is a 78-year-old man who has a left chest wall cyst that has been infected and drained and has now subsided. He did have an attempt at an excisional biopsy in the past in an office setting and it was unsuccessful. See the office note from February for details. 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 Allergic rhinitis Mixed hyperlipidemia Essential hypertension Surgical History (Updated 03/21/24 @ 10:28 by Esmer So RN) Hx of bilateral cataract extraction (2022) History of surgical procedure (2017) 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) Hx of colonoscopy (12/2022) Anesthesia History of knee surgery (~1986) History of knee surgery (~12/1998) Family History Father Diabetes mellitus History of heart disease Mother Cancer Social History marital status: household members: spouse lives independently: Yes occupational status: previously employed Smoking Status: Never smoker alcohol intake: current substance use type: does not use Meds Home Medications and Allergies Home Medications Medication Instructions Recorded Confirmed Type loratadine 10 mg tablet (Claritin) 10 mg PO QDAY ##0 09/07/12 03/26/24 History cholecalciferol (vitamin D3) 50 50 mcg PO DAILY 09/23/22 03/26/24 History mcg (2,000 unit) capsule coenzyme Q10 100 mg capsule 300 mg PO DAILY 09/23/22 03/26/24 History multivitamin 1 tab PO DAILY 09/23/22 03/26/24 History triazolam 0.25 mg tablet 0.25 mg PO ONCE PRN Dental Anxiety 09/23/22 03/21/24 History acetaminophen 500 mg capsule 500 mg PO BID PRN Pain 11/14/22 03/26/24 History fluticasone propionate 50 2 spray intranasal DAILY #16 grams 12/13/22 03/26/24 Rx mcg/actuation nasal spray,suspension cyclosporine 0.05 % eye drops in a 1 drp EYE-BOTH ONCE 03/01/23 02/14/24 History dropperette chlorthalidone 25 mg tablet 25 mg PO DAILY #90 tabs 04/24/23 03/26/24 Rx pravastatin 10 mg tablet 10 mg PO DAILY #90 tabs 06/07/23 03/26/24 Rx tramadol 50 mg tablet 50 mg PO TID PRN pain #30 tabs 11/08/23 03/21/24 Rx amlodipine 10 mg tablet 10 mg PO DAILY #90 tabs 12/29/23 03/26/24 Rx empagliflozin 25 mg tablet 25 mg PO DAILY #90 tabs 01/15/24 03/26/24 Rx (Jardiance) losartan 100 mg tablet 100 mg PO DAILY #90 tabs 02/26/24 03/26/24 Rx diclofenac sodium 1 % topical gel 2 g topical BID #1,000 grams 03/12/24 03/26/24 Rx potassium chloride 10 mEq 10 meq PO DAILY #90 caps 03/12/24 03/26/24 Rx capsule,extended release diphenhydramine 25 2 tab PO BEDTIME 03/21/24 03/26/24 History mg-acetaminophen 500 mg tablet olopatadine 0.1 % eye drops 1 drp ophthalmic (eye) DAILY 03/21/24 03/26/24 History diazepam 5 mg tablet 5 mg PO .q6hrs PRN Back Pain 03/26/24 03/26/24 History Allergies Allergy/AdvReac Type Severity Reaction Status Date / Time simvastatin [SIMVASTATIN] Allergy Severe MUSCLE Verified 03/26/24 15:31 CRAMPS metformin AdvReac Intermediate Diarrhea Verified 03/26/24 15:31 duloxetine AdvReac Unknown Irritable, Verified 03/26/24 15:31 depression Exam Vital Signs (past 8 hours): - 03/26/24 15:46 Temperature 98.1 F Pulse Rate 66 Respiratory Rate 16 Blood Pressure 121/68 Pulse Oximetry 94 Oxygen Delivery Method Room Air Oxygen Delivery Method Room Air Narrative Exam Narrative: Left 3-4 cm chest wall cyst without inflammation or drains Assessment & Plan Assessment and plan (1) Subcutaneous cyst: Status: Acute Plan We will proceed with excisional biopsy in the OR.
--- NOTE | 2024-03-26 17:11 | SUR.OPER ---
Supine on padded OR bed, head on pillow, arms secured on padded arm boards at <90 degrees abduction, legs uncrossed, safety belt at thigh, tape over blanket over lower legs.
[2024-03-26] MEDS: BUPIVACAINE 0.5% (PF) 30 ML, EPINEPHrine 0.15 MG INJ (17:16)
--- NOTE | 2024-03-26 17:19 | PM.OP.1 ---
Operative Date/Time/Diagnoses Date of procedure: 03/26/24 Time of procedure: 17:19 Pre-op diagnosis: Left chest wall subcutaneous cyst Post-op diagnosis: same Procedure & Clinicians Procedure: Excisional biopsy of left subcutaneous chest wall cyst Same procedure as scheduled: Yes Surgeon: Juve Bourne Principal Bioinformatics Specialist: Shon Sung Anesthesia Type: MAC +/- Operative Notes Procedure in detail: The patient is a 78-year-old man with a subcutaneous cyst of his left chest wall that had been recently infected. He was consented for excisional biopsy of left chest wall cyst. He was examined in the preoperative area in the site was marked. There was no evidence of active infection. He was brought to the operating room and MAC was induced. The left chest wall was prepped and draped in the usual fashion and a time-out was performed. The old scar was identified over the cyst and a palpable subcutaneous component was identified just superior to the old scar. We then made a 5 cm x 2 cm elliptical incision to excise the old scar and the palpable subcutaneous tissue which was presumed to be the cyst. Once the tissue was excised Bovie cautery was used to achieve hemostasis in the wound cavity. Additional local was injected into the deep tissue. The wound was then closed in layers using multiple interrupted 3-0 Vicryl dermal sutures followed by multiple interrupted 2-0 nylon mattress suture. Sterile dressings were applied. EBL: 10 mL Shon DE LA TORRE provided assistance with exposure, retraction and closure of incisions. Post-operative Condition: stable Disposition: PACU
[2024-03-26 17:31] VITALS: BP 101/51; PULSE 70; RESP 14; TEMP 36.6; O2SAT 99
[2024-03-26 17:36] VITALS: BP 130/57; PULSE 69; RESP 15; O2SAT 99
[2024-03-26 17:41] VITALS: BP 113/51; PULSE 67; RESP 14; O2SAT 100
[2024-03-26 17:46] VITALS: BP 147/66; PULSE 68; RESP 15; TEMP 36.3; O2SAT 100
== END 2024-03-26 17:55 | disposition home or self-care (01) ==
PROVIDERS: PCP Internal Medicine; Referring Provider Surgery; Visit Provider Surgery
PROC: (CPT 11404; principal; 2024-03-26 16:15)
DX: L72.0 Epidermal cyst (principal); I10 Essential (primary) hypertension; E66.9 Obesity, unspecified; E11.9 Type 2 diabetes mellitus without complications; Z79.84 Long term (current) use of oral hypoglycemic drugs
CPT/HCPCS: 11404; 12032; J0171; J2704; J3010

== ENCOUNTER 2024-05-02 10:42 | Outpatient (CLI) | payer OTHER, SELFPAY ==
[2024-05-02] VITALS (13 sets, daily range): BP systolic 129–162; BP diastolic 57–83; PULSE 68–85; RESP 10–18; TEMP 36.2; O2SAT 93–98
--- NOTE | 2024-05-02 11:15 | DI.RAD.S_ITS ---
PROCEDURE: PAIN L/S MED/LAT N RFA BILAT INDICATIONS: Bilateral L3-L4 and L5 medial branch RFA COMPARISON: None. FINDINGS: Fluoroscopic spot filming was performed to verify placement of spinal needles at the bilateral L3, L4 and L5 level(s), as labeled on the films. IMPRESSION: Spinal needles at the bilateral L3, L4 and L5 levels. Please see procedure report for details Dictated by: Nubia Melgoza M.D. on 05/02/2024 at 21:25 Approved by: Nubia Melgoza M.D. on 05/02/2024 at 21:25
[2024-05-02] MEDS: MIDAZOLAM 2 MG/2 ML VIAL 1 MG IV ×2 (12:25→12:50)
[2024-05-02] MEDS: fentaNYL 100 MCG/2 ML INJ 50 MCG IV (12:25)
[2024-05-02] MEDS: LIDOCAINE 1% 20 ML 5 ML INJ (12:30)
[2024-05-02] MEDS: BUPIVACAINE 0.5% (PF) 10 ML VIAL 5 ML INJ (12:30)
[2024-05-02] MEDS: BUPIVACAINE 0.25% (PF) VIAL 5 ML INJ (12:53)
--- NOTE | 2024-05-02 13:02 | P.PCN_ITS ---
Date/Time/Diagnoses Date of procedure: 05/02/24 Time of procedure: 13:02 Pre-procedure diagnosis: 1. RECALCITRANT FACET ARTHROPATHY Post-procedure diagnosis: same Procedure Notes Procedure: 1. BILATERAL L3, L4 AND L5 MEDIAL BRANCH RADIOFREQUENCY NEUROTOMY Indications: Naa is referred by Dr. Krishna for treatment of facet arthropathy. Physician: Da Elizalde Total Fluoroscopy time (seconds): 17 Total sedation minutes: 32 Complications: none Procedure in detail & Post-procedure care: DESCRIPTION OF PROCEDURE Bilateral L3, L4 and L5 medial branch radiofrequency neurotomy The patient is well known to this clinic having undergone previous facet injections with good but temporary relief. The patient has experienced appropriate, concordant relief with previous facet and median branch blocks but the patient's pain has been recalcitrant to further conservative measures. Therefore, based upon the patient's relief and persistent symptoms, the patient is considered an appropriate candidate for facet rhizotomy. All of the patient's questions regarding the risks versus benefits of the procedure, including, but not limited to, bleeding, infection, temporary as well as lasting nerve injury, paralysis, stroke, and , as well treatment alternatives were answered to satisfaction. After obtaining informed consent, denial of pertinent drug allergies, as well as being made aware of the potential risks of bleeding, infection, spinal cord trauma, paralysis, temporary and permanent nerve damage, seizure, stroke, and possible , the patient was brought to the fluoroscopy suite and positioned prone on the fluoroscopy table. After review of previous anaesthesic history and IV conscious sedation the patient was deemed safe to proceed with today's procedure with IV conscious sedation as ASA class II designation. Safety time-out was performed to confirm patient ID, procedure to be performed and site of procedure. IV sedation was accomplished with a combination of 2mg of Versed and 50mcg of Fentanyl administered by the RN after DO order, titrated to patient comfort during the course of the procedure while the patient remained responsive to all verbal commands. The lumbar region was prepped in usual sterile fashion and covered with a fenestrated drape in the usual sterile fashion. Appropriate monitors applied including pulse oximeter, pulse, and blood pressure for regular monitoring throughout the procedure. After local infiltration using 1% lidocaine, under fluoroscopic guidance, a 10- cm RF insulated needle with a 10-mm active tip was positioned parallel to the j unction of the right the superior articulating process where the L5 medial branch resides. Needle placement was confirmed with motor stimulation of .5v on the right which produced local stimulation without radicular component. The stimulation was then increased to 2v with, once again, only local multifidus stimulation without radicular component. The needle was then removed and the identical procedure was performed along the length of the right L4 medial branch with motor stimulation at .7v on the right. The identical procedure was once again performed along the length of the right L3 and medial branch with motor stimulation of .5v on the right. The medial branches were then anesthetised with 0.5% marcaine. This was then followed by two discreet lesions performed at 80 degrees Celsius for 90 seconds each. The identical procedures were repeated on the left. The patient tolerated the procedure well without signs or symptoms of complications prior to transfer to the recovery area continued monitoring without incident. The patient was then transferred to the recovery area where they were observed for an appropriate period of time after the injection. The patient reported a VAS score of 7 prior to the procedure and a post-procedure VAS of 1. POST OP INSTRUCTIONS The patient was provided a Pain Log to continue to record the patient's response to the target-specific procedure prior to the patient's follow-up visit with the referring physician. Additionally, specific post-injection care instructions and a contact number to our office were provided if concerns arise regarding possible complications associated with the procedure are suspected.
== END 2024-05-02 13:25 | disposition home or self-care (01) ==
PROVIDERS: PCP Internal Medicine; Referring Provider Physical Medicine & Rehabilitation; Visit Provider Physical Medicine & Rehabilitation
DX: M47.816 Spondylosis without myelopathy or radiculopathy, lumbar region (principal); M47.817 Spondylosis without myelopathy or radiculopathy, lumbosacral region
CPT/HCPCS: 64635; 64636; 99152; 99153; J2250; J3010; J3490

== ENCOUNTER → 2024-07-17 07:18 | Outpatient (CLI) | payer OTHER, SELFPAY ==
[2024-07-17 08:06] LABS: Hemoglobin A1C% w Est Avg Glu 6.7 % (4.0-6.0)
[2024-07-17 08:23] LABS: Aspartate Aminotransferase 21 IU/L (17-59); BUN Creatinine Ratio 18.4 (6-22); Blood Urea Nitrogen 14 mg/dL (9-20); Calcium 9.6 mg/dL (8.4-10.2); Carbon Dioxide 30 mmol/L (22-32); Chloride 99 mmol/L (98-107); Cholesterol 210 mg/dL (140-199); Estimated Glomerular Filt Rate > 60 mL/min (>60); Glucose 148 mg/dL (80-110); HDL Cholesterol 39 mg/dL (40-60); HEMOLYSIS 22 (0-50); LDL Cholesterol Calculated 124 mg/dL (<100); Potassium 3.1 mmol/L (3.4-5.1); Sodium 135 mmol/L (137-145); Triglycerides 236 mg/dL (35-150)
== END ==
PROVIDERS: PCP Internal Medicine; Referring Provider Internal Medicine; Visit Provider Internal Medicine
DX: E11.69 Type 2 diabetes mellitus with other specified complication (principal); E78.2 Mixed hyperlipidemia; I10 Essential (primary) hypertension; E78.5 Hyperlipidemia, unspecified
CPT/HCPCS: 36415; 80048; 80061; 83036; 84450

== ENCOUNTER → 2024-10-18 07:38 | Outpatient (CLI) | payer OTHER, SELFPAY ==
[2024-10-18 08:24] LABS: Hemoglobin A1C% w Est Avg Glu 6.9 % (4.0-6.0)
[2024-10-18 08:39] LABS: Aspartate Aminotransferase 26 IU/L (17-59); Blood Urea Nitrogen 16 mg/dL (9-20); Calcium 9.6 mg/dL (8.4-10.2); Carbon Dioxide 26 mmol/L (22-32); Chloride 102 mmol/L (98-107); Cholesterol 192 mg/dL (140-199); Estimated Glomerular Filt Rate > 60 mL/min (>60); Glucose 167 mg/dL (80-110); HDL Cholesterol 41 mg/dL (40-60); HEMOLYSIS < 15 (0-50); LDL Cholesterol Calculated 107 mg/dL (<100); Potassium 3.1 mmol/L (3.4-5.1); Sodium 138 mmol/L (137-145); Triglycerides 222 mg/dL (35-150)
[2024-10-18 09:04] LABS: Prostate Specific Antigen 0.981 ng/mL (0.10-4.00)
== END ==
PROVIDERS: PCP Internal Medicine; Referring Provider Internal Medicine; Visit Provider Internal Medicine
DX: E11.69 Type 2 diabetes mellitus with other specified complication (principal); E78.2 Mixed hyperlipidemia; N40.1 Benign prostatic hyperplasia with lower urinary tract symptoms; E78.5 Hyperlipidemia, unspecified; N13.8 Other obstructive and reflux uropathy
CPT/HCPCS: 36415; 80048; 80061; 83036; 84153; 84450

== ENCOUNTER → 2024-10-21 09:13 | Outpatient (CLI) | payer OTHER, SELFPAY ==
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
== END ==
PROVIDERS: PCP Internal Medicine; Referring Provider Physical Medicine & Rehabilitation; Visit Provider Physical Medicine & Rehabilitation
DX: M47.22 Other spondylosis with radiculopathy, cervical region (principal); M48.02 Spinal stenosis, cervical region; M50.10 Cervical disc disorder with radiculopathy, unspecified cervical region; M51.34 Other intervertebral disc degeneration, thoracic region; M43.8X4 Other specified deforming dorsopathies, thoracic region; M47.26 Other spondylosis with radiculopathy, lumbar region; M48.062 Spinal stenosis, lumbar region with neurogenic claudication; G62.9 Polyneuropathy, unspecified; M15.9 Polyosteoarthritis, unspecified
CPT/HCPCS: 72050; 72072; 99214

== ENCOUNTER → 2025-04-04 07:36 | Outpatient (CLI) | payer OTHER, SELFPAY ==
[2025-04-04 08:20] LABS: Aspartate Aminotransferase 21 IU/L (17-59); BUN Creatinine Ratio 27.3 (6-22); Blood Urea Nitrogen 21 mg/dL (9-20); Calcium 9.6 mg/dL (8.4-10.2); Carbon Dioxide 20 mmol/L (22-32); Chloride 109 mmol/L (98-107); Cholesterol 164 mg/dL (140-199); Estimated Glomerular Filt Rate > 60 mL/min (>60); Glucose 139 mg/dL (70-99); HDL Cholesterol 40 mg/dL (40-60); HEMOLYSIS < 15 (0-50); LDL Cholesterol Calculated 96 mg/dL (<100); Potassium 3.9 mmol/L (3.4-5.1); Sodium 139 mmol/L (137-145); Triglycerides 138 mg/dL (35-150)
[2025-04-04 08:25] LABS: Hemoglobin A1C% w Est Avg Glu 6.5 % (4.0-6.0)
[2025-04-04 13:39] LABS: Creatinine Urine Random 49.87 mg/dL
[2025-04-04 13:46] LABS: Microalbumin Urine Random 1.8 mg/dL (0-1.6)
== END ==
PROVIDERS: PCP Internal Medicine; Referring Provider Internal Medicine; Visit Provider Internal Medicine
DX: E11.69 Type 2 diabetes mellitus with other specified complication (principal); E78.5 Hyperlipidemia, unspecified; I10 Essential (primary) hypertension; E78.2 Mixed hyperlipidemia
CPT/HCPCS: 36415; 80048; 80061; 82043; 82570; 83036; 84450